=== PATIENT | female | born 1980 | race Caucasian/White ===

== ENCOUNTER 2020-04-08 07:45 | Inpatient (IN) | payer OTHER ==
[~2020-04-08] VITALS: Ht 172.7 cm; Wt 102.1 kg
[~2020-04-08 07:45] MED LIST: OBSTETRIX DHA1 EACH; PROGESTERONE100 MG
[2020-04-17] MEDS ORDERED: IBUPROFEN800 MG PO (06:48)
[2020-04-17] MEDS ORDERED: NEURONTIN600 MG PO (06:48)
== END 2020-04-17 09:50 | DRG 743 ==
LOC: ADM 07:45 → OB/GYN 04-15 05:30 → O/R 04-15 05:30 → OB/GYN 04-15 07:00 → CIR.AMB 04-15 07:45 → OB/GYN 04-15 07:45 → EDSTATUS 04-15 07:45 → OB/GYN 04-15 15:35
PROVIDERS: ADMIT Obstetrics & Gynecology; ATTEND Obstetrics & Gynecology
PROC: 0UB90ZZ Excision of Uterus, Open Approach (ICD-10-PCS; principal; 2020-04-15 07:00)
DX: D26.1 Other benign neoplasm of corpus uteri (principal); N80.0 Endometriosis of uterus